=== PATIENT | male | born 1990 | race Caucasian/White ===

== ENCOUNTER 2022-08-05 21:43 | Emergency (ER) | payer OTHER, SELFPAY ==
[2022-08-05 21:46] VITALS: BP 167/89; PULSE 88; RESP 17; TEMP 36.5; O2SAT 96; BMI 75.5
--- NOTE | 2022-08-05 21:55 | ED_ITS ---
Documented by User: Talia Taveras MD 08/11/22 18:08 HPI - General Adult General: Chief complaint: Urogenital-Male Stated complaint: FLANK PAIN Time Seen by Provider: 08/05/22 21:48 History of Present Illness: Patient is 32-year-old male with history of prior UTI, morbid obesity, hypertension presenting to the emergency room for concerns of bilateral flank pain and decreased urinary output. Patient tells me that since 12:00, patient has had bilateral flank pain. Patient has had decreased urinary output today. Patient reports that his urine appears to be orange like. Patient denies any hematuria or gross sediments. Patient denies any new penile discharge or any lesion or pain down in the groin area. Patient has any fever/chill, nausea/vomiting, prior abdominal surgery, prior renal colic, diarrhea, melena/hematochezia. Patient has no complaints of chest pain, shortness or palpitation or lightheadedness, cough, runny nose, or sore throat. Onset:12pm Duration:ongoing Location:home Severity:moderate Associated symptoms: Deny chest pain, dyspnea, nausea, rash, palpitations or vomiting Review of Systems Const: Denies: fever(s) or chills Eyes: Denies: change in vision ENMT: Denies: mouth pain Card: Denies: chest pain or palpitations Resp: Denies: dyspnea or non-productive cough GI: Denies: abdominal pain, nausea, vomiting or diarrhea : Reports: flank pain (+b/l flank pain) and other (+decreased urinary output); Denies: dysuria Musc: Denies: extremity pain Skin/Breast: Denies: rash or new lesions Neuro: Denies: weakness in extremities Psych: Reports: other (Normal mood) Saeid/Lymph: Denies: easy bruising PFS ED PFSH: Medical History Hypertension Morbid obesity UTI symptoms Social History Smoking and tobacco status: never smoked Alcohol intake: never Substance/Drug Use: never Physical Exam Const: COMMON NORMALS: alert HENMT: COMMON NORMALS: atraumatic HEAD & SCALP: atraumatic MOUTH: moist mucous membranes not abnormal Eye: COMMON NORMALS: EOMs intact bilaterally and conjunctivae normal CONJUNCTIVA: Yes conjunctivae normal Neck/C-Spine: COMMON NORMALS: full ROM and supple Resp: COMMON NORMALS: normal respiratory effort and clear to auscultation bilaterally AUSCULTATION: clear to auscultation bilaterally Cardio: COMMON NORMALS: regular rate RATE: regular rate GI: COMMON NORMALS: Soft to palpation and non-tender PALPATION: Yes Soft to palpation OTHER: No focal TTP. NO guarding rebound, guarding, rigidity. No CVA tenderness to percussion. Neg Pham/Neg McBurney's point tenderness, no suprabupic tenderness to palpation. Back/Pelvis: OTHER: + Bilateral CVA tenderness L >R Extremity: COMMON NORMALS: full ROM Neuro: SENSORIUM/ORIENTATION: Yes alert MOTOR EXAM: No Abnormal motor stre ngth present and Other motor observations present (no focal motor deficits) Psych: COMMON NORMALS: speech normal SPEECH: Yes normal speech MOOD & AFFECT: Yes euthymic mood Course Vital Signs: Vital signs: Vital Signs Temperature 97.7 F 08/05/22 21:46 Pulse Rate 78 08/06/22 00:15 Respiratory Rate 16 08/06/22 00:15 Blood Pressure 143/75 08/06/22 00:15 Pulse Oximetry 95 08/06/22 00:15 Oxygen Delivery Me thod 08/05/22 22:00 MDM - General Adult Medical Decision Making Patient is 32-year-old male with history of prior UTI, morbid obesity, hypertension presenting to the emergency room for concerns of bilateral flank pain and decreased urinary output. On physical, patient has bilateral CVA tenderness. No focal abdominal tenderness. Patient continues to be hemodynamically stable in no acute distress. Case signed out the night physician. Patient CT scan here is normal does have a urinary tract infection will discharge antibiotics he is to follow-up with PCP and return if worsening. Lab Data : 08/05/22 22:15 08/05/22 22:15 Radiology Impressions Abdomen/Pelvis CT 08/05/22 22:51 IMPRESSION: 1. No hydronephrosis of either kidney. No visible renal or ureteral calculus. The kidneys enhance homogeneously. See above discussion. 2. Suspect mild urinary bladder wall thickening, possibly related to cystitis. 3. Possibility of biliary sludge versus noncalcified gallstones in the gallbladder, see above discussion. 4. Normal appendix. 5. No free air or bowel distention. 6. Possibly some thickening of the lower esophagus, see above discussion. 7. Other findings discussed above. Laboratory Results WBC 10.4 10^3/uL (4.0-10.0) H 08/05/22 22:15 RBC 5.40 10^6/uL (4.1-5.3) H 08/05/22 22:15 Hgb 17.5 g/dL (11.7-16.6) H 08/05/22 22:15 Hct 51.2 % (42.0-52.0) 08/05/22 22:15 MCV 94.8 fl (80-94) H 08/05/22 22:15 MCH 32.4 pg (28.0-34.0) 08/05/22 22:15 MCHC 34.2 g/dL (30.0-36.0) 08/05/22 22:15 RDW 12.8 % (12.1-15.1) 08/05/22 22:15 Plt Count 208 10^3/cmm (130-400) 08/05/22 22:15 MPV 11.1 fL (7.4-10.4) H 08/05/22 22:15 Neut % (Auto) 76.6 % 08/05/22 22:15 Lymph % (Auto) 13.6 % 08/05/22 22:15 [place] % (Auto) 8.2 % 08/05/22 22:15 Eos % (Auto) 0.9 % 08/05/22 22:15 Baso % (Auto) 0.5 % 08/05/22 22:15 Neut # (Auto) 7.96 10^3/uL (1.8-7.7) H 08/05/22 22:15 Lymph # (Auto) 1.4 10^3/uL (0.8-4.8) 08/05/22 22:15 [place] # (Auto) 0.9 10^3/uL (0.2-0.9) 08/05/22 22:15 Eos # (Auto) 0.1 10^3/uL (0.0-0.8) 08/05/22 22:15 Baso # (Auto) 0.1 10^3/uL (0.0-0.1) 08/05/22 22:15 Nucleated RBC % (auto) 0 % 08/05/22 22:15 Nucleated RBCs # 0.0 /100WBC 08/05/22 22:15 Sodium 140 mmol/L (136-145) 08/05/22 22:15 Potassium 4.3 mmol/L (3.5-5.1) 08/05/22 22:15 Chloride 103 mmol/L (98-107) 08/05/22 22:15 Carbon Dioxide 24 mmol/L (22-29) 08/05/22 22:15 Anion Gap 17.3 (5-19) 08/05/22 22:15 BUN 13 mg/dL (6-20) 08/05/22 22:15 Creatinine 1.2 mg/dL (0.7-1.2) 08/05/22 22:15 GFR Calculation 69.7 mL/min (90-130) L 08/05/22 22:15 Glucose 93 mg/dL (65-115) 08/05/22 22:15 Calculated Osmolality 290 mOsm/kg (285-295) 08/05/22 22:15 Calcium 9.8 mg/dL (8.5-10.5) 08/05/22 22:15 Total Bilirubin 1.0 mg/dL (0.15-1.2) 08/05/22 22:15 AST 19 U/L (0-40) 08/05/22 22:15 ALT 27 U/L (0-41) 08/05/22 22:15 Alkaline Phosphatase 88 U/L (40-130) 08/05/22 22:15 Total Protein 8.0 g/dL (6.6-8.7) 08/05/22 22:15 Albumin 4.3 g/dL (3.5-5.2) 08/05/22 22:15 Globulin 3.7 g/dL (1.3-4.6) 08/05/22 22:15 Lipase 26 U/L (13-60) 08/05/22 22:15 Urine Color Yellow (Yellow) 08/05/22 22:04 Urine Appearance Sl cloudy (CLEAR) A 08/05/22 22:04 Urine pH 6.0 (5-7) 08/05/22 22:04 Ur Specific [place] 1.025 (1.005-1.030) 08/05/22 22:04 Urine Protein Negative 08/05/22 22:04 Urine Glucose (UA) Negative (Normal) 08/05/22 22:04 Urine Ketones Negative (Negative) 08/05/22 22:04 Urine Blood Trace-intact (Negative) A 08/05/22 22:04 Urine Nitrate Negative 08/05/22 22:04 Urine Bilirubin Negative (Negative) 08/05/22 22:04 Urine Urobilinogen 0.2 mg/dL (Negative) 08/05/22 22:04 Ur Leukocyte Esterase 3+ 08/05/22 22:04 Urine RBC 0-4 /hpf (0-2) H 08/05/22 22:04 Urine WBC 15-25 /hpf (0-5) H 08/05/22 22:04 Ur Squamous Epith Cells 0-4 /hpf (0-5) H 08/05/22 22:04 Amorphous Sediment Not Reportable 08/05/22 22:04 Urine Bacteria 2+ /hpf (NONE) H 08/05/22 22:04 Discharge Plan Discharge Patient Disposition: Home Clinical Impression: Acute flank pain, Urinary tract infection Prescriptions: New cephalexin 500 mg capsule 500 mg PO TID 7 Days Qty: 21 0RF No Action furosemide 40 mg tablet 40 mg PO DAILY bupropion HCl 150 mg tablet sustained-release 12 hr 150 mg PO DAILY venlafaxine 75 mg capsule,extended release 24hr 75 mg PO DAILY cetirizine 10 mg tablet 10 mg PO DAILY tizanidine 4 mg tablet 4 mg PO DAILY sumatriptan succinate 100 mg tablet 100 mg PO PRN PRN (Reason: Headache) amlodipine 10 mg tablet 10 mg PO DAILY trazodone 150 mg tablet 150 mg PO BEDTIME gabapentin 300 mg capsule 300 mg PO DAILY Vitamin D2 1,250 mcg (50,000 unit) capsule 1,250 mcg PO DIRECTED Rx Instructions: once a week albuterol sulfate 90 mcg/actuation HFA aerosol inhaler 90 mcg INHALATION PRN PRN (Reason: Shortness Of Breath) topiramate 100 mg tablet 100 mg PO DAILY fluticasone propionate 50 mcg/actuation spray,suspension 50 mcg INTRANASAL DAILY naproxen 500 mg tablet 500 mg PO BID potassium chloride 10 mEq tablet,ER particles/crystals 10 meq PO DAILY Discharge Orders: Discharge ED (Routine); Ordered 08/06/22 Ordered By: Ammon Feldman Discharge Diet: Advance as tolerated Discharge Activity: Increase activity as tolerated Patient Instructions: Urinary Tract Infection in Men (ED), Pain Management Activity Restrictions/Additional Instructions: Please come back if you have any worsening abdominal pain, fever or chills, nausea or vomiting, diarrhea, blood in the stool, inability hold down liquid or solids, or any new concerning complaints. Coding Level of Care Code ED Microbiological Laboratory Technician for [place] Fwd Exam Comprehensive Documented by User: Ammon Feldman MD 08/06/22 00:03 HPI - General Adult General: Chief complaint: Urogenital-Male Stated complaint: FLANK PAIN Time Seen by Provider: 08/05/22 21:48 PFSH ED PFSH: Medical History Hypertension Morbid obesity UTI symptoms Social History Smoking and tobacco status: never smoked Alcohol intake: never Substance/Drug Use: never Course Vital Signs: Vital signs: Vital Signs Temperature 97.7 F 08/05/22 21:46 Pulse Rate 78 08/06/22 00:15 Respiratory Rate 16 08/06/22 00:15 Blood Pressure 143/75 08/06/22 00:15 Pulse Oximetry 95 08/06/22 00:15 Oxygen Delivery Me thod 08/05/22 22:00 MDM - General Adult Medical Decision Making Patient is 32-year-old male with history of prior UTI, morbid obesity, hypertension presenting to the emergency room for concerns of bilateral flank pain and decreased urinary output. On physical, patient has bilateral CVA tenderness. No focal abdominal tenderness. Patient continues to be hemodynamically stable in no acute distress. Patient CT scan here is normal does have a urinary tract infection will discharge antibiotics he is to follow-up with PCP and return if worsening. Lab Data : 08/05/22 22:15 08/05/22 22:15 Radiology Impressions Abdomen/Pelvis CT 08/05/22 22:51 IMPRESSION: 1. No hydronephrosis of either kidney. No visible renal or ureteral calculus. The kidneys enhance homogeneously. See above discussion. 2. Suspect mild urinary bladder wall thickening, possibly related to cystitis. 3. Possibility of biliary sludge versus noncalcified gallstones in the gallbladder, see above discussion. 4. Normal appendix. 5. No free air or bowel distention. 6. Possibly some thickening of the lower esophagus, see above discussion. 7. Other findings discussed above. Laboratory Results WBC 10.4 10^3/uL (4.0-10.0) H 08/05/22 22:15 RBC 5.40 10^6/uL (4.1-5.3) H 08/05/22 22:15 Hgb 17.5 g/dL (11.7-16.6) H 08/05/22 22:15 Hct 51.2 % (42.0-52.0) 08/05/22 22:15 MCV 94.8 fl (80-94) H 08/05/22 22:15 MCH 32.4 pg (28.0-34.0) 08/05/22 22:15 MCHC 34.2 g/dL (30.0-36.0) 08/05/22 22:15 RDW 12.8 % (12.1-15.1) 08/05/22 22:15 Plt Count 208 10^3/cmm (130-400) 08/05/22 22:15 MPV 11.1 fL (7.4-10.4) H 08/05/22 22:15 Neut % (Auto) 76.6 % 08/05/22 22:15 Lymph % (Auto) 13.6 % 08/05/22 22:15 [place] % (Auto) 8.2 % 08/05/22 22:15 Eos % (Auto) 0.9 % 08/05/22 22:15 Baso % (Auto) 0.5 % 08/05/22 22:15 Neut # (Auto) 7.96 10^3/uL (1.8-7.7) H 08/05/22 22:15 Lymph # (Auto) 1.4 10^3/uL (0.8-4.8) 08/05/22 22:15 [place] # (Auto) 0.9 10^3/uL (0.2-0.9) 08/05/22 22:15 Eos # (Auto) 0.1 10^3/uL (0.0-0.8) 08/05/22 22:15 Baso # (Auto) 0.1 10^3/uL (0.0-0.1) 08/05/22 22:15 Nucleated RBC % (auto) 0 % 08/05/22 22:15 Nucleated RBCs # 0.0 /100WBC 08/05/22 22:15 Sodium 140 mmol/L (136-145) 08/05/22 22:15 Potassium 4.3 mmol/L (3.5-5.1) 08/05/22 22:15 Chloride 103 mmol/L (98-107) 08/05/22 22:15 Carbon Dioxide 24 mmol/L (22-29) 08/05/22 22:15 Anion Gap 17.3 (5-19) 08/05/22 22:15 BUN 13 mg/dL (6-20) 08/05/22 22:15 Creatinine 1.2 mg/dL (0.7-1.2) 08/05/22 22:15 GFR Calculation 69.7 mL/min (90-130) L 08/05/22 22:15 Glucose 93 mg/dL (65-115) 08/05/22 22:15 Calculated Osmolality 290 mOsm/kg (285-295) 08/05/22 22:15 Calcium 9.8 mg/dL (8.5-10.5) 08/05/22 22:15 Total Bilirubin 1.0 mg/dL (0.15-1.2) 08/05/22 22:15 AST 19 U/L (0-40) 08/05/22 22:15 ALT 27 U/L (0-41) 08/05/22 22:15 Alkaline Phosphatase 88 U/L (40-130) 08/05/22 22:15 Total Protein 8.0 g/dL (6.6-8.7) 08/05/22 22:15 Albumin 4.3 g/dL (3.5-5.2) 08/05/22 22:15 Globulin 3.7 g/dL (1.3-4.6) 08/05/22 22:15 Lipase 26 U/L (13-60) 08/05/22 22:15 Urine Color Yellow (Yellow) 08/05/22 22:04 Urine Appearance Sl cloudy (CLEAR) A 08/05/22 22:04 Urine pH 6.0 (5-7) 08/05/22 22:04 Ur Specific [place] 1.025 (1.005-1.030) 08/05/22 22:04 Urine Protein Negative 08/05/22 22:04 Urine Glucose (UA) Negative (Normal) 08/05/22 22:04 Urine Ketones Negative (Negative) 08/05/22 22:04 Urine Blood Trace-intact (Negative) A 08/05/22 22:04 Urine Nitrate Negative 08/05/22 22:04 Urine Bilirubin Negative (Negative) 08/05/22 22:04 Urine Urobilinogen 0.2 mg/dL (Negative) 08/05/22 22:04 Ur Leukocyte Esterase 3+ 08/05/22 22:04 Urine RBC 0-4 /hpf (0-2) H 08/05/22 22:04 Urine WBC 15-25 /hpf (0-5) H 08/05/22 22:04 Ur Squamous Epith Cells 0-4 /hpf (0-5) H 08/05/22 22:04 Amorphous Sediment Not Reportable 08/05/22 22:04 Urine Bacteria 2+ /hpf (NONE) H 08/05/22 22:04 Discharge Plan Discharge Patient Disposition: Home Clinical Impression: Acute flank pain, Urinary tract infection Prescriptions: New cephalexin 500 mg capsule 500 mg PO TID 7 Days Qty: 21 0RF No Action furosemide 40 mg tablet 40 mg PO DAILY bupropion HCl 150 mg tablet sustained-release 12 hr 150 mg PO DAILY venlafaxine 75 mg capsule,extended release 24hr 75 mg PO DAILY cetirizine 10 mg tablet 10 mg PO DAILY tizanidine 4 mg tablet 4 mg PO DAILY sumatriptan succinate 100 mg tablet 100 mg PO PRN PRN (Reason: Headache) amlodipine 10 mg tablet 10 mg PO DAILY trazodone 150 mg tablet 150 mg PO BEDTIME gabapentin 300 mg capsule 300 mg PO DAILY Vitamin D2 1,250 mcg (50,000 unit) capsule 1,250 mcg PO DIRECTED Rx Instructions: once a week albuterol sulfate 90 mcg/actuation HFA aerosol inhaler 90 mcg INHALATION PRN PRN (Reason: Shortness Of Breath) topiramate 100 mg tablet 100 mg PO DAILY fluticasone propionate 50 mcg/actuation spray,suspension 50 mcg INTRANASAL DAILY naproxen 500 mg tablet 500 mg PO BID potassium chloride 10 mEq tablet,ER particles/crystals 10 meq PO DAILY Discharge Orders: Discharge ED (Routine); Ordered 08/06/22 Ordered By: Ammon Feldman Discharge Diet: Advance as tolerated Discharge Activity: Increase activity as tolerated Patient Instructions: Urinary Tract Infection in Men (ED), Pain Management Activity Restrictions/Additional Instructions: Please come back if you have any worsening abdominal pain, fever or chills, nausea or vomiting, diarrhea, blood in the stool, inability hold down liquid or solids, or any new concerning complaints. Coding Level of Care Code ED Microbiological Laboratory Technician for [place] Fwd Exam Comprehensive
[2022-08-05 22:00] VITALS: PULSE 89; RESP 18; O2SAT 99
[2022-08-05 22:13] LABS: Bilirubin Urine Negative (Negative); Blood Urine Trace-intact (Negative); Glucose Urine UA Negative (Normal); Ketones Urine Negative (Negative); Leukocyte Esterase Urine 3+; Nitrate Urine Negative; Protein Urine Negative; Specific Gravity, Urine 1.025 (1.005-1.030); Urine Color Yellow (Yellow); Urobilinogen Urine 0.2 mg/dL (Negative)
[2022-08-05 22:19] LABS: Add Urine Microscopic? YES; Bacteria Urine 2+ /hpf; RBC Urine 0-4 /hpf (0-2); Squamous Epithelial Cell Urine 0-4 /hpf (0-5); WBC Urine 15-25 /hpf (0-5)
[2022-08-05] MEDS: ketorolac 30 mg/mL INJ IVP (22:19)
[2022-08-05] MEDS: lactated ringers 1,000 ML 30 ML IV (22:19)
[2022-08-05 22:20] LABS: Add Urine Culture? Yes
[2022-08-05 22:33] LABS: Basophils # 0.1 10^3/uL (0.0-0.1); Basophils % 0.5 %; Eosinophils # 0.1 10^3/uL (0.0-0.8); Eosinophils % 0.9 %; Hematocrit 51.2 % (42.0-52.0); Hemoglobin 17.5 g/dL (11.7-16.6); Lymphocytes # 1.4 10^3/uL (0.8-4.8); Lymphocytes % 13.6 %; Mean Corpuscular HGB Conc 34.2 g/dL (30.0-36.0); Mean Corpuscular Hemoglobin 32.4 pg (28.0-34.0); Mean Corpuscular Volume 94.8 fl (80-94); Mean Platelet Volume 11.1 fL (7.4-10.4); Monocytes # 0.9 10^3/uL (0.2-0.9); Monocytes % 8.2 %; Neutrophils # 7.96 10^3/uL (1.8-7.7); Neutrophils % 76.6 %; Nucleated Red Blood Cells % 0 %; Platelet Count 208 10^3/cmm (130-400); Red Cell Distribution Width 12.8 % (12.1-15.1); White Blood Count 10.4 10^3/uL (4.0-10.0)
[2022-08-05 22:46] LABS: Alanine Aminotransferase 27 U/L (0-41); Albumin Level 4.3 g/dL (3.5-5.2); Alkaline Phosphatase 88 U/L (40-130); Aspartate Amino Transferase 19 U/L (0-40); Blood Urea Nitrogen 13 mg/dL (6-20); Calcium 9.8 mg/dL (8.5-10.5); Carbon Dioxide 24 mmol/L (22-29); Chloride 103 mmol/L (98-107); Globulin 3.7 g/dL (1.3-4.6); Glomerular Filtration Rate 69.7 mL/min (90-130); Glucose 93 mg/dL (65-115); Lipase 26 U/L (13-60); Osmolality Calculated 290 mOsm/kg (285-295); Sodium 140 mmol/L (136-145)
[2022-08-05 22:50] LABS: Anion Gap 17.3 (5-19); Potassium 4.3 mmol/L (3.5-5.1)
[2022-08-05] MEDS: cefTRIAXone 1,000 MG in sodium chloride 0.9% (plus) 50 ML 100 MG IV (22:50)
--- NOTE | 2022-08-05 22:51 | CTR_ITS ---
PROCEDURE INFORMATION: Exam: CT Abdomen And Pelvis With Contrast Exam date and time: 08/05/2022 10:57 PM Age: 32 years old Clinical indication: Pain and abnormal findings; Abnormal lab test; Abdominal pain; Patient HX: C/O bilateral flank pain with dysuria. Elevated wbc. Negative for blood on ua. ; Additional info: Pyelo vs anatomical obstruction TECHNIQUE: Imaging protocol: Computed tomography of the abdomen and pelvis with contrast. Radiation optimization: All CT scans at this facility use at least one of these dose optimization techniques: automated exposure control; mA and/or kV adjustment per patient size (includes targeted exams where dose is matched to clinical indication); or iterative reconstruction. Contrast material: OMNI 350; Contrast volume: 80 ml; Contrast route: INTRAVENOUS (IV); COMPARISON: No relevant prior studies available. RADIATION DOSE METRICS: Total DLP (mGy-cm): 1565.43 FINDINGS: Lungs: The lung bases are clear. Mediastinal space: There may be some mucosal/wall thickening involving the lower esophagus. This is nonspecific, but could represent evidence for esophagitis. Please correlate clinically. Liver: Unremarkable. Gallbladder and bile ducts: Suspect some subtle higher attenuation material in the gallbladder. This may represent biliary sludge, although noncalcified gallstones might also have this appearance on CT. Ultrasound could be more specific/sensitive for detecting gallstones, if clinically needed. No other definite gallbladder abnormality by CT. No biliary tree dilation. Pancreas: Unremarkable. Spleen: Unremarkable. Adrenal glands: Unremarkable. Kidneys and ureters: No hydronephrosis of either kidney. No visible ureteral calculus. No perinephric fluid. The kidneys enhance homogeneously. Normal appearance of the kidneys on CT does not entirely exclude the diagnosis of acute pyelonephritis. Please correlate with clinical and laboratory evaluation. Stomach and bowel: No significant bowel distention. There are no CT findings to strongly suggest diverticulitis. Appendix: The appendix is visualized and appears normal. Intraperitoneal space: No free intraperitoneal air, or ascites. Vasculature: No evidence for abdominal aortic aneurysm. Lymph nodes: Several borderline enlarged inguinal lymph nodes bilaterally. Urinary bladder: No visible calculus in the urinary bladder. Possibly some mild diffuse urinary bladder wall thickening. Evaluation is somewhat limited, as the bladder is not well distended. While nonspecific, this could indicate evidence for cystitis. Please correlate clinically. Reproductive: Essentially unremarkable for age. Bones/joints: No significant acute finding. Soft tissues: Small umbilical hernia, containing only fat. CT/CT abdomen pelvis w con* [id number] IMPRESSION: 1. No hydronephrosis of either kidney. No visible renal or ureteral calculus. The kidneys enhance homogeneously. See above discussion. 2. Suspect mild urinary bladder wall thickening, possibly related to cystitis. 3. Possibility of biliary sludge versus noncalcified gallstones in the gallbladder, see above discussion. 4. Normal appendix. 5. No free air or bowel distention. 6. Possibly some thickening of the lower esophagus, see above discussion. 7. Other findings discussed above.
[2022-08-05] MEDS: iohexol 350 mg/mL 100 mL Btl IV (23:02)
[2022-08-06 00:15] VITALS: BP 143/75; PULSE 78; RESP 16; O2SAT 95
== END 2022-08-06 00:16 | disposition home or self-care (01) ==
PROVIDERS: Emergency Medicine; Emergency Provider Emergency Medicine
DX: N39.0 Urinary tract infection, site not specified (principal); I10 Essential (primary) hypertension
CPT/HCPCS: 74177; 80053; 81001; 83690; 85025; 87086; 96365; 96375; 99285; J0696; J1885; Q9967

== ENCOUNTER 2022-09-21 20:42 | Emergency (ER) | payer OTHER, SELFPAY ==
[2022-09-21 20:43] VITALS: BP 161/69; PULSE 97; RESP 18; TEMP 36.6; O2SAT 96; BMI 74.9
--- NOTE | 2022-09-21 21:00 | W.ED.PSYCHS ---
HPI - Psych General: Chief Complaint: Psychiatric Symptoms Stated Complaint: SI Time Seen by Provider: 09/21/22 20:46 Source: patient Mode of arrival: EMS Limitations: no limitations History of Present Illness: This patient was transported to the emergency department by EMS. He related to friends that he was feeling sad and depressed and they called EMS and talked him into coming to the hospital. Apparently has been depressed and does not know which way to turn secondary to not being able to see his daughter as expected and not knowing her location. He also states he is estranged from his family and they all live in [place]. He is not currently employed and states he is waiting for his disability to be approved. He states generally he has been sleeping well although some nights he does not sleep and has been eating well and has not been recently ill. He denies any current street drug or alcohol use. He states that he does smoke tobacco. He states he has had previous bouts of depression several years ago that was treated with medication but he stopped taking that medication after a few years and has been doing well up until just recently. He has no specific thoughts of self-harm or self injury. MD complaint: feels depressed Duration: getting worse Associated psychiatric symptoms: depression Associated symptoms: Reports depression; Deny auditory hallucinations, visual hallucinations, homicidal ideation or suicidal ideation Review of Systems Const: Denies: fever(s) or chills Eyes: Denies: change in vision ENMT: Denies: odynophagia, nasal discharge, nasal congestion or nasal obstruction Card: Denies: chest pain, palpitations or irregular heart rhythm Resp: Denies: dyspnea, productive cough or non-productive cough GI: Denies: abdominal pain, nausea or vomiting : Denies: flank pain, difficulty urinating or dysuria Musc: Denies: neck pain, back pain, extremity pain or extremity swelling Skin/Breast: Denies: rash or pruritus Neuro: Denies: headache(s), numbness in extremities or weakness in extremities Psych: Reports: depression and difficulty concentrating; Denies: visual hallucinations, auditory hallucinations, suicidal ideation or homicidal ideation Endo: Denies: polyuria or polydipsia [facility] ED PFSH: Medical History Hypertension Morbid obesity UTI symptoms Social History Smoking and tobacco status: never smoked Alcohol intake: never Physical Exam Narrative: EXAM NARRATIVE: Patient makes good eye contact. He appears comfortable but he has flat affect with depressed mood. Const: COMMON NORMALS: no acute distress and patient oriented x3 GENERAL APPEARANCE: cooperative NUTRITIONAL APPEARANCE: obese HENMT: COMMON NORMALS: normocephalic and moist oral mucous membranes HEAD & SCALP: normocephalic Eye: COMMON NORMALS: Equal, round and reactive pupils present and EOMs intact bilaterally PUPIL: Yes Equal, round and reactive pupils present Neck/C-Spine: COMMON NORMALS: full ROM Chest: COMMONS NORMALS: normal inspection of the chest Resp: COMMON NORMALS: normal respiratory effort and No use of accessory muscles EFFORT & INSPECTION: Yes able to speak in complete sentences Cardio: COMMON NORMALS: regular rate and Peripheral pulses 2+ throughout RATE: regular rate PERIPHERAL PULSES: Peripheral pulses 2+ throughout GI: COMMON NORMALS: Normal to inspection, nondistended, normoactive bowel sounds present and Soft to palpation PALPATION: Yes Soft to palpation : COMMON NORMALS: Yes no CVA tenderness BLADDER/KIDNEY EXAM: Yes no CVA tenderness Back/Pelvis: COMMON NORMALS: no CVA tenderness, thoracic and lumbar spine normal to inspection, no thoracic nor lumbar tenderness and thoraco-lumbar ROM normal Extremity: COMMON NORMALS: normal to inspection, full ROM, no clubbing, cyanosis or edema and no pedal edema Neuro: COMMON NORMALS: patient oriented x3, moves all extremities, no focal motor deficits and no sensory deficits noted Psych: COMMON NORMALS: Normal thought process present, cooperative and speech normal ACTIVITY/MOTOR BEHAVIOR: Yes appropriate eye contact SPEECH: Yes normal speech and Yes soft MOOD & AFFECT: Yes depressed mood and Yes Flat affect present THOUGHT PROCESS: Normal thought process present MEMORY/COGNITION: Yes memory grossly intact INSIGHT: Fair insight present (Psych) Skin: COMMON NORMALS: no rashes or lesions noted and turgor normal GENERAL SKIN EXAM: no rashes or lesions noted and turgor normal Course Reevaluation(s): Reevaluation #1: The patient remained stable. Screening labs did not reveal any evidence of biochemical abnormalities etc. We discussed treatment options to include inpatient treatment, [facility] [place] referral and initiation of his previous venlafaxine this evening. He is asked this time very low risk of self-harm. He is certainly depressed and likely situational [place] affected but again no plan or strong concerns about self-harm at this time. He acknowledged the treatment options and weighed them carefully and decided that he would prefer the latter of the 2. We also discussed return precautions should he start feeling more sad or start having thoughts of self-harm. He acknowledged this and has intact capacity and decision-making ability at this time. No evidence of influence of drugs alcohol etc. We will be discharging him with a 2-week supply of venlafaxine. Also a consult to case management for [facility] [place] contact. 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 No thoughts of self-harm or harm to others. Most of his feelings of sadness seem to be precipitated by current situation with estrangement from his daughter. He had a past history of depression without any suicidality and was treated effectively but after a period of time of several years on the medication weaned himself off as he was doing well. There is no evidence of influence of drug alcohol him and his suicidality is deemed to be very low at this time. After discussion of treatment options he is opted for continuation of outpatient treatment with [facility] [place] with a short-term prescription from the emergency department to get him started back on his medications. Lab Data I reviewed the patient's lab results. : 09/21/22 21:20 09/21/22 21:20 Laboratory Results WBC 7.3 10^3/uL (4.0-10.0) 09/21/22 21: RBC 5.30 10^6/uL (4.1-5.3) 09/21/22 21:20 Hgb 17.2 g/dL (11.7-16.6) H 09/21/22 21:20 Hct 50.3 % (42.0-52.0) 09/21/22 21: MCV 94.9 fl (80-94) H 09/21/22 21: MCH 32.5 pg (28.0-34.0) 09/21/22 21:20 MCHC 34.2 g/dL (30.0-36.0) 09/21/22 21:20 RDW 12.8 % (12.1-15.1) 09/21/22 21:20 Plt Count 210 10^3/cmm (130-400) 09/21/22 21:20 MPV 11.3 fL (7.4-10.4) H 09/21/22 21:20 Neut % (Auto) 75.4 % 09/21/22 21:20 Lymph % (Auto) 14.7 % 09/21/22 21:20 [place] % (Auto) 7.5 % 09/21/22 21:20 Eos % (Auto) 1.5 % 09/21/22 21:20 Baso % (Auto) 0.8 % 09/21/22 21:20 Neut # (Auto) 5.49 10^3/uL (1.8-7.7) 09/21/22 21:20 Lymph # (Auto) 1.1 10^3/uL (0.8-4.8) 09/21/22 21:20 [place] # (Auto) 0.6 10^3/uL (0.2-0.9) 09/21/22 21:20 Eos # (Auto) 0.1 10^3/uL (0.0-0.8) 09/21/22 21:20 Baso # (Auto) 0.1 10^3/uL (0.0-0.1) 09/21/22 21:20 Nucleated RBC % (auto) 0 % 09/21/22 21: Nucleated RBCs # 0.0 /100WBC 09/21/22 21:20 Sodium 139 mmol/L (136-145) 09/21/22 21:20 Potassium 3.6 mmol/L (3.5-5.1) 09/21/22 21:20 Chloride 100 mmol/L (98-107) 09/21/22 21:20 Carbon Dioxide 27 mmol/L (22-29) 09/21/22 21:20 Anion Gap 15.6 (5-19) 09/21/22 21:20 BUN 12 mg/dL (6-20) 09/21/22 21:20 Creatinine 1.0 mg/dL (0.7-1.2) 09/21/22 21:20 GFR Calculation 86.1 mL/min (90-130) L 09/21/22 21:20 Glucose 80 mg/dL (65-115) 09/21/22 21:20 Calculated Osmolality 287 mOsm/kg (285-295) 09/21/22 21:20 Calcium 9.8 mg/dL (8.5-10.5) 09/21/22 21:20 Total Bilirubin 0.6 mg/dL (0.15-1.2) 09/21/22 21:20 AST 18 U/L (0-40) 09/21/22 21:20 ALT 23 U/L (0-41) 09/21/22 21:20 Alkaline Phosphatase 87 U/L (40-130) 09/21/22 21:20 Total Protein 7.7 g/dL (6.6-8.7) 09/21/22 21:20 Albumin 4.2 g/dL (3.5-5.2) 09/21/22 21:20 Globulin 3.5 g/dL (1.3-4.6) 09/21/22 21:20 Salicylates < 0.3 mg/dL (3-10) L 09/21/22 21:20 Acetaminophen < 5.0 ug/mL (10-30) L 09/21/22 21:20 Ethyl Alcohol < 10 mg/dL (0-10) 09/21/22 21:20 Discharge Plan Discharge Patient Disposition: Home Clinical Impression: Depression Condition: Stable Prescriptions: New venlafaxine 75 mg capsule,extended release 24hr 75 mg PO DAILY Qty: 14 0RF No Action furosemide 40 mg tablet 40 mg PO DAILY bupropion HCl 150 mg tablet sustained-release 12 hr 150 mg PO DAILY venlafaxine 75 mg capsule,extended release 24hr 75 mg PO DAILY cetirizine 10 mg tablet 10 mg PO DAILY tizanidine 4 mg tablet 4 mg PO DAILY sumatriptan succinate 100 mg tablet 100 mg PO PRN PRN (Reason: Headache) amlodipine 10 mg tablet 10 mg PO DAILY trazodone 150 mg tablet 150 mg PO BEDTIME gabapentin 300 mg capsule 300 mg PO DAILY Vitamin D2 1,250 mcg (50,000 unit) capsule 1,250 mcg PO DIRECTED Rx Instructions: once a week albuterol sulfate 90 mcg/actuation HFA aerosol inhaler 90 mcg INHALATION PRN PRN (Reason: Shortness Of Breath) topiramate 100 mg tablet 100 mg PO DAILY fluticasone propionate 50 mcg/actuation spray,suspension 50 mcg INTRANASAL DAILY naproxen 500 mg tablet 500 mg PO BID potassium chloride 10 mEq tablet,ER particles/crystals 10 meq PO DAILY Discharge Orders: Discharge ED (Routine); Ordered 09/21/22 Ordered By: Evan Stubbs Discharge Diet: Usual diet Discharge Activity: Increase activity as tolerated Patient Instructions: Depression (ED), Opioid Safety, Pain Management Activity Restrictions/Additional Instructions: [facility] [address] [facility]. [phone] They open at 0730 and will get you in for an intake and initiation of therapy as needed. I have also placed a consultation with our case management and they will contact you as well to ensure that you are able to get the treatment you need. We have also provided a 2-week prescription of your previous medication to get you started back on that medication to help you feel better. If it anytime you feel as if you are not improving, having thoughts of self-harm or any concerns whatsoever return to this emergency department or call 911 for reevaluation and assistance. 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
[2022-09-21 21:32] LABS: Basophils # 0.1 10^3/uL (0.0-0.1); Basophils % 0.8 %; Eosinophils # 0.1 10^3/uL (0.0-0.8); Eosinophils % 1.5 %; Hematocrit 50.3 % (42.0-52.0); Hemoglobin 17.2 g/dL (11.7-16.6); Lymphocytes # 1.1 10^3/uL (0.8-4.8); Lymphocytes % 14.7 %; Mean Corpuscular HGB Conc 34.2 g/dL (30.0-36.0); Mean Corpuscular Hemoglobin 32.5 pg (28.0-34.0); Mean Corpuscular Volume 94.9 fl (80-94); Mean Platelet Volume 11.3 fL (7.4-10.4); Monocytes # 0.6 10^3/uL (0.2-0.9); Monocytes % 7.5 %; Neutrophils # 5.49 10^3/uL (1.8-7.7); Neutrophils % 75.4 %; Nucleated Red Blood Cells % 0 %; Platelet Count 210 10^3/cmm (130-400); Red Cell Distribution Width 12.8 % (12.1-15.1); White Blood Count 7.3 10^3/uL (4.0-10.0)
[2022-09-21 21:50] LABS: Alanine Aminotransferase 23 U/L (0-41); Albumin Level 4.2 g/dL (3.5-5.2); Alkaline Phosphatase 87 U/L (40-130); Anion Gap 15.6 (5-19); Aspartate Amino Transferase 18 U/L (0-40); Blood Urea Nitrogen 12 mg/dL (6-20); Calcium 9.8 mg/dL (8.5-10.5); Carbon Dioxide 27 mmol/L (22-29); Chloride 100 mmol/L (98-107); Globulin 3.5 g/dL (1.3-4.6); Glomerular Filtration Rate 86.1 mL/min (90-130); Glucose 80 mg/dL (65-115); Osmolality Calculated 287 mOsm/kg (285-295); Potassium 3.6 mmol/L (3.5-5.1); Sodium 139 mmol/L (136-145); Total Bilirubin 0.6 mg/dL (0.15-1.2); Total Protein 7.7 g/dL (6.6-8.7)
[2022-09-21 21:51] LABS: Acetaminophen < 5.0 ug/mL (10-30); Alcohol Level < 10 mg/dL (0-10); Salicylate < 0.3 mg/dL (3-10)
[2022-09-21] MEDS: venlafaxine ER (24HR) 75 mg Capsule PO (22:19)
--- NOTE | 2022-09-22 08:03 | PC.SOCIAL ---
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 Original Note: [facility] Referral Consult received for [facility] referral. Referral sent to [facility] at this time, clinic will contact patient with appointment date/time.
== END 2022-09-21 22:25 | disposition home or self-care (01) ==
PROVIDERS: Emergency Provider Emergency Medicine
DX: F32.A Depression, unspecified (principal)
CPT/HCPCS: 80053; 80307; 85025; 99283